=== PATIENT | male | born 2000 | race Caucasian/White ===

== ENCOUNTER 2023-04-05 13:21 | Outpatient (AMB) | payer MEDICARE, MEDICAID, SELFPAY ==
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
[2023-04-05 13:45] VITALS: BP 124/82; PULSE 74; O2SAT 97; BMI 28.9
== END 2023-04-05 14:35 | disposition home or self-care (01) ==
PROVIDERS: PCP Internal Medicine; Visit Provider Nurse Practitioner Family
DX: G47.33 Obstructive sleep apnea (adult) (pediatric) (principal); R41.840 Attention and concentration deficit; R53.83 Other fatigue; R41.3 Other amnesia
CPT/HCPCS: 99204

== ENCOUNTER → 2023-04-05 13:21 | Outpatient (BNVA) | payer MEDICARE, MEDICAID, SELFPAY | PROVIDERS: PCP Internal Medicine; Visit Provider Nurse Practitioner Family | DX: R41.840 Attention and concentration deficit (principal); R41.3 Other amnesia; R53.83 Other fatigue; G47.33 Obstructive sleep apnea (adult) (pediatric) | CPT/HCPCS: 99202 ==

== ENCOUNTER → 2023-05-20 14:55 | Outpatient (REF) | payer MEDICARE, MEDICAID, SELFPAY | LOC: HO.SL 14:55 | PROVIDERS: PCP Internal Medicine; Visit Provider Nurse Practitioner Family | DX: G47.33 Obstructive sleep apnea (adult) (pediatric) (principal); R06.83 Snoring; R40.0 Somnolence | CPT/HCPCS: 95806 ==

== ENCOUNTER → 2023-05-20 15:07 | Outpatient (BNV) | payer MEDICARE, MEDICAID, SELFPAY | PROVIDERS: PCP Internal Medicine; Visit Provider Psychiatry & Neurology Neurology | DX: R06.83 Snoring (principal) | CPT/HCPCS: 95806 ==

== ENCOUNTER → 2023-06-24 21:31 | Outpatient (REF) | payer MEDICARE, MEDICAID, SELFPAY | LOC: HO.SL 21:31 | PROVIDERS: PCP Internal Medicine; Visit Provider Nurse Practitioner Family | DX: G47.33 Obstructive sleep apnea (adult) (pediatric) (principal); R41.840 Attention and concentration deficit | CPT/HCPCS: 95810 ==

== ENCOUNTER → 2023-06-24 21:35 | Outpatient (BNV) | payer MEDICARE, MEDICAID, SELFPAY | PROVIDERS: PCP Internal Medicine; Visit Provider Psychiatry & Neurology Neurology | DX: R06.83 Snoring (principal); R40.0 Somnolence | CPT/HCPCS: 95810 ==

== ENCOUNTER 2023-07-14 12:56 | Outpatient (AMB) | payer MEDICARE, MEDICAID, SELFPAY ==
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
[2023-07-14 13:02] VITALS: BP 118/72; PULSE 53; O2SAT 97; BMI 29.3
== END 2023-07-14 14:01 | disposition home or self-care (01) ==
PROVIDERS: PCP Internal Medicine; Visit Provider Nurse Practitioner Family
DX: R41.840 Attention and concentration deficit (principal); R53.83 Other fatigue; R41.3 Other amnesia; R41.89 Other symptoms and signs involving cognitive functions and awareness; M25.50 Pain in unspecified joint; M62.89 Other specified disorders of muscle
CPT/HCPCS: 99214

== ENCOUNTER 2023-07-14 14:03 | Outpatient (REF) | payer MEDICARE, MEDICAID, SELFPAY ==
[2023-07-14 19:14] LABS: Rheumatoid Factor < 13.0 IU/mL (<15.0)
[2023-07-14 19:16] LABS: Alanine Aminotransferase 23 U/L (0-40); Albumin Level 4.6 g/dL (3.5-5.0); Alkaline Phosphatase 49 U/L (39-117); Anion Gap 14 (12-20); Aspartate Amino Transferase 23 U/L (5-37); Bilirubin Total 0.4 mg/dL (0.0-1.0); Blood Urea Nitrogen 14 mg/dL (9-16); Calcium 10.4 mg/dL (8.4-10.2); Carbon Dioxide 26 mmol/L (22-29); Chloride 106 mmol/L (96-108); Estimated Glomerular Filt Rate > 60; Glucose Random 81 mg/dL (60-115); Iron 137 mcg/dL (45-160); Magnesium 2.1 mg/dL (1.6-2.6); Percent Iron Saturation 42 % (15-50); Potassium 4.6 mmol/L (3.3-5.1); Sodium 141 mmol/L (135-145); Total Iron Binding Capacity 323 mcg/dL (228-428); Total Protein 7.5 g/dL (6.5-8.0); Unsaturated Iron Binding 186 ug/dL
[2023-07-14 19:21] LABS: Ferritin 125 ng/mL (20-250); TSH reflex Free T4 0.84 uIU/mL (0.32-4.0)
[2023-07-14 19:36] LABS: Folate 18.3 ng/mL (> or = 4.0); Vitamin B12 1508 pg/mL (200-900)
[2023-07-14 19:44] LABS: Erythrocyte Sedimentation Rate 3 MM/HR (0-15)
[2023-07-15 05:12] LABS: Estimated Average Glucose 88 mg/dL; Hemoglobin A1c % 4.7 % (<6.0)
[2023-07-15 17:08] LABS: CRP High Sensitivity 0.5 mg/L
[2023-07-17 22:24] LABS: Anti Nuclear Antibody Screen NEGATIVE (NEGATIVE)
[2023-07-18 17:10] LABS: Vitamin D 25-OH, D2 <4 ng/mL; Vitamin D 25-OH, D3 34 ng/mL; Vitamin D 25-OH, Total 34 ng/mL (30-100)
[2023-07-20 14:58] LABS: Methylmalonic Acid 86 nmol/L (87-318)
== END 2023-07-14 14:04 | disposition home or self-care (01) ==
LOC: HO.HKASLDS 14:03
PROVIDERS: Visit Provider Nurse Practitioner Family
DX: M25.50 Pain in unspecified joint (principal); R41.3 Other amnesia; R53.83 Other fatigue; F09 Unspecified mental disorder due to known physiological condition; M62.89 Other specified disorders of muscle; R41.840 Attention and concentration deficit; Z79.899 Other long term (current) drug therapy
CPT/HCPCS: 36415; 80053; 82306; 82550; 82607; 82728; 82746; 83036; 83540; 83735; 83921; 84443; 85652; 86038; 86141; 86431; 99212

== ENCOUNTER 2023-07-19 16:44 | Outpatient (REF) | payer MEDICARE, MEDICAID, SELFPAY ==
[2023-07-19 17:35] LABS: Basophils Absolute Auto 0.1 X10*3/uL (0.0-0.2); Basophils Percent Auto 0.8 % (0-2); Eosinophils Absolute Auto 0.1 X10*3/uL (0.0-0.4); Eosinophils Percent Auto 1.4 % (0-4); Hemoglobin 16.7 g/dl (14.0-18.0); Imm Gran Abs Auto 0.01 X10*3/uL (0.00-0.03); Imm Gran Pct Auto 0.2 % (0.0-0.4); Lymphocytes Absolute Auto 1.8 X10*3/uL (1.2-4.9); Lymphocytes Percent Auto 27.7 % (20-40); MANUAL DIFF FLAG NO; Mean Corpuscular HGB Conc 35.5 g/dl (31.0-36.0); Mean Corpuscular Hemoglobin 31.6 pg (27.0-33.0); Mean Corpuscular Volume 88.8 fL (80.0-98.0); Mean Platelet Volume 9.7 fL (9.4-12.4); Monocytes Absolute Auto 0.5 X10*3/uL (0.1-1.2); Monocytes Percent Auto 6.9 % (2-11); Neutrophils Absolute Auto 4.1 x10*3/uL (2.0-8.3); Platelet Count 237 X10*3/uL (160-400); Red Blood Count 5.29 X10*6/uL (4.60-5.80); Red Cell Distribution Width 12.4 % (11.0-16.0); White Blood Count 6.6 X10*3/uL (4.8-10.8)
[2023-07-20 21:24] LABS: Homocysteine 6.4 umol/L (<11.4)
== END 2023-07-19 16:45 | disposition home or self-care (01) ==
LOC: HO.LAB 16:44
PROVIDERS: PCP Internal Medicine; Visit Provider Nurse Practitioner Family
DX: M25.50 Pain in unspecified joint (principal); R41.3 Other amnesia; R53.83 Other fatigue; F09 Unspecified mental disorder due to known physiological condition; M62.89 Other specified disorders of muscle
CPT/HCPCS: 36415; 83090; 85025

== ENCOUNTER 2023-08-24 12:49 | Outpatient (REF) | payer MEDICARE, MEDICAID, SELFPAY ==
--- NOTE | 2023-08-24 12:54 | EEG_ITS ---
This is a 16 channel EEG with an EKG lead. The patient is reported awake during the tracing. Background EEG rhythm is 8 to 10 hertz, 5 to 25 microvolt posteriorly, lower amplitude fast anteriorly. Photic stimulation does not produce any significant abnormality. Hyperventilation similarly is unremarkable. No definite sharp waves or spikes are noted. Occasional right hemispheric brief slowing was noted. Cardiac lead did not reveal any significant abnormality. IMPRESSION: Minimally abnormal EEG, but not diagnostic of seizure disorder. If that is strongly suspected, I recommend ambulatory 24 hour or 48 hour EEG. MD EDITH Ervin/VERONICA / [phone]
== END 2023-08-24 12:50 | disposition home or self-care (01) ==
LOC: HO.NEURO 12:49
PROVIDERS: PCP Internal Medicine; Visit Provider Nurse Practitioner Family
DX: R41.3 Other amnesia (principal); R53.83 Other fatigue; R41.840 Attention and concentration deficit
CPT/HCPCS: 95816

== ENCOUNTER 2024-03-15 12:25 | Outpatient (AMB) | payer MEDICARE, MEDICAID, SELFPAY ==
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
[2024-03-15 12:33] VITALS: BMI 29.3
--- OUTSIDE RECORDS SUMMARY | 2024-03-15 13:47 | XMS_ITS | Encounter Summary ---
Author Organization [facility] Address [address] [place] [address] Phone Care Team Providers Care Chair Pad Maker Name Role Phone Provider, King CHAND Primary Care Provider [phone] Encounter Details Date Type Department Care Team (Late st Contact Info) Description 06/27/2017 Conversion [facility]counter [facility] [address] [address] Deandre Palencia MD Social History Tobacco Use Types Packs/Day Years Used Date Smoking Tobacco: Never Assessed Sex and Gender Information Value Date Recorded Sex Assigned at Male 08/08/2019 11:43 AM EDT Legal Sex Male 6:26 PM EDT Gender Identity Male 08/08/2019 11:43 AM EDT Sexual Orientation Straight 08/08/2019 11 :43 AM EDT documented as of this encounter Plan of Treatment Not on file documented as of this encounter Visit Diagnoses Not on filedocumented in this encounter Care Teams Chair Pad Maker Relationship Specialty Start Date End Date Provider, MD King [address] [place] [id number] PCP - General Pediatrics 09/02/21 12/08/23 endo 05/04/18 documented as of this encounter
--- OUTSIDE RECORDS SUMMARY | 2024-03-15 13:48 | XMS_ITS | Clinical Summary ---
Author Organization [facility] Address [address] [place], [place] [id number] Phone Care Team Providers Care Manager Of Change Name Role Phone Unavailable Primary Care Provider Unavailabl e Allergies No known active allergies Medications ARIPiprazole 5 MG tablet 8 Active escitalopram 20 MG tablet 8 Active metFORMIN 500 MG tablet 8 Active clindamycin 1 % gel 8 Active BENZOYL PEROXIDE 10 % external wash 8 Active escitalopram 5 MG tablet 9 Active benzoyl peroxide 10 % gel Apply 10 application topically every other day. 0 0 Active Active Problems Problem Noted Date Diagnosed Date Hypotestosteronemia 05/04/2018 Obstructive sleep apnea of child 04/27/2018 Generalized anxiety disorder 02/03/2016 Disruptive behavior disorder 02/03/2016 Depression with anxiety 11/17/2014 Obsessive-compulsive disorder 11/17/2014 Immunizations Name Administration Dates Next Due COVID-19 Pfizer, monovalent, 12+ years 1 DTaP 04/14/2006, 3,2001,05/24,2001 DTaP 5 04/14/2006, 3,2001,05/24,2001 HPV Vaccine 9 Valent 11/04/2018,07/05/2018,05/04 Hep A, ped/adol 05/04/2018,03/20/2016 Hep B, ped/adol 2001,2001,2001 Hib (PRP-T) 05/10/2002, 2,2001,03/22 IPV 04/14/2006, 2,2001,03/22 MMR 03/03/2005,01/17/2002 Meningococcal Conj (Menactra) MCV4P 04/23/2017,1 03/29/2011 Pneumococcal Conjugate 09/08/2002,2001,2001,03/22 Tdap 01/27/2012 Varicella 04/14/2006,01/17/2002 Family History Medical History Relation Name Comments Autism spectrum disorder Brother coy Anxiety disorder Father Diabetes Maternal Grandmother Hyperlipidemia Mother Migraines Mother Relation Name Status Comments Brother coy Alive Brother: Alive and well Father Alive anxiety disorde r/Father: Alive and well Maternal Grandfather Maternal Grandmother Alive DM type 2 Mother Alive Mother: Elevate d cholesterol, Migraines Other Siblings: one t win brother adhd aspergers/Family history of Asthma, Family history of Obesity, Family history of Diabetes mellitus, Family history of Developmental dislocation of hip Paternal Grandfather Paternal Grandmother Alive stomach issues Social History Tobacco Use Types Packs/Day Years Used Date Smoking Tobacco: Never Smokeless Tobacco: Never Hunger/Food Answer Date Recorded In the last 12 months, did y ou or your family ever eat less than you felt you should because there wasn't enough money for food? No 12/17/2020 Stable Housing Answer Date Recorded Are you worried that in the next 2 months you may not have stable housing? No 12/17/2020 Transportation Concerns Answer Date Rec orded In the last 12 months, have you or your family ever had to go without healthcare because you didn't have a way to get there? No 12/17/2020 Hazards in Home Answer Date Recorded Think about the place you li ve. Do you have problems with any of the following? Pests (mice or roaches), mold, no/not working smoke detectors, water leaks, no window guards. No 2020 Financing Utilities Answer Date Recorde d In the last 12 months, has t he electric, gas, oil, or water company threatened to shut off your services in your home? No 12/17/2020 Safety at Home Answer Date Recorded Are you or your family worried about feeling saf e in your home? No 12/17/2020 Outside Support Answer Date Recorded Do you feel that you need mo re support from other people or programs to help you care for yourself or your family? No 12/17/2020 Understanding Health Concerns Answer Da te Recorded Do you need help understandi ng your or your child's healthcare needs (diagnosis, medications, plan, etc.)? No 12/17/2020 Financing Health Concerns Answer Date R ecorded In the last 12 months, was t here a time when your child needed to see a doctor or get medications or supplies but could not because of cost? No 12/17/2020 Missing School or Work Answer Date Santos rded Did you or your child miss s chool or work because of a health problem that could have been avoided? No 12/17/2020 Sex and Gender Information Value Date Recorded Sex Assigned at Male 08/08/2019 11:43 AM EDT Legal Sex Male 6:26 PM EDT Gender Identity Male 08/08/2019 11:43 AM EDT Sexual Orientation Straight 08/08/2019 11 :43 AM EDT Last Filed Vital Signs Vital Sign Reading Time Taken Comments Blood Pressure 122/74 12/17/2020 12:54 PM EST Pulse 92 06/06/2015 12:00 AM EDT Temperature 36.9 ??C (98.4 ??F) 08/04/2018 2:18 PM ED T Respiratory Rate - - Oxygen Saturation 97% 06/06/2015 12:00 AM EDT Inhaled Oxygen Concentration - - Weight 132 kg (291 lb) 12/17/2020 12:54 PM EST Height 184.8 cm (6' 0.75 ) 12/17/2020 12:[address] Body Mass Index 38.66 12/17/2020 12:54 PM EST Plan of Treatment Health Maintenance Due Date Last Done Comments Men B Vaccine (1 of 2 - Standard) 2017 LDL-C/Cholesterol 05/04/2018 Glucose/HbA1C 12/14/2018 12/14/2017, 11/0 07/2017, 06/07/2015 DTaP,Tdap,and Td Vaccines (7 - Td or Tdap) 01/26/2022 01/27/2012, 04/14/2006, 04/14/2006, Additional history exists Influenza Vaccines (#1) 2023 COVID-19 Vaccine (2 - 2023-2 5 season) 2023 12/17/2020 Hepatitis B Vaccines Completed 2001, 2001, 2001 HIB Vaccines Completed 05/10/2002, 08/08, 2001, Additional history exists Pneumococcal Vaccine Completed 09/08/2002, 2001, 2001, Additional history exists MMR Vaccines Completed 03/03/2005, 01/17/2002 IPV Vaccines Completed 04/14/2006, 10/09, 2001, Additional history exists Varicella Vaccines Completed 04/14/2006, 01/17/2002 Meningococcal Vaccine Completed 04/23/2017, 012 Hepatitis A Vaccines Completed 05/04/2018, 03/20/19 17 HPV Vaccines Completed 11/04/2018, 06/09, 05/04/2018 Procedures * Due to [place] [employer] law, this organization might not be sharing sensitive test results. Procedure Name Priority Date/Time Associated Diagnosis Comments COMPREHENSIVE METABOLIC PANEL Routine 12/14/2017 11:19 AM EST Chronic fatigue from Last 3 Months or Most Recently Relevant to Health Maintenance Results * Due to [place] [employer] law, this organization might not be sharing sensitive test results. * (ABNORMAL) Comprehensive metabolic panel (12/14/2017 11:19 AM EST) Glucose 85 (70-99) MG/DL [facility] Urea Nitrogen 13 (5-18) MG/DL [facility] Creatinine 0.8 (0.7-1.2) MG/DL [facility] Sodium 140 (133-145) MMOL/L [facility] Potassium 5.0 (3.6-5.2) MMOL/L [facility] Chloride 103 (98-107) MMOL/L [facility] HCO3, Arterial 28 (22-29) MMOL/L [facility] Anion Gap 9 (4-17) [facility] Albumin 4.8(H) (3.2-4.5) GM/DL [facility] Calcium 10.3 (8.6-10.5 ) MG/DL [facility] Comment: BORDERLINE ELEVATED CALCIUM LEVELS SHOULD BE REPEATED ON A SEPARATE DAY CLINICALLY INDICATED. NOTE: ADULT REFERENCE RANGE MAY NOT APPLY TO PEDIATRIC PATIENTS. INTERPRET RESULTS WITH CAUTION. Bilirubin, Total 0.5 (0-1.2) MG/DL [facility] Total Protein 7.6 (6.2-8.2) GM/DL [facility] A/G Ratio 1.7 [facility] AST (SGOT) 29 (0-38) U/L [facility] Alkaline Phosphatase 111 (0-390) U/L [facility] ALT (SGPT) 24 (0-41) U/L [facility] eGFR Non- Not reported if <18 yrs ML/MIN/1. 73 M2 [facility] eGFR Not reported if <18 yrs ML/MIN/1. 73 M2 [facility] Comment: Testing performed or reported by [facility], a Service of [facility], [address] [place] [address] Yani Woodson MD, Benefits Manager Blood 12/14/2017 11:1 9 AM EST 12/14/2017 11:25 AM EST us Deandre Palencia MD LAB BLOOD ORDERABLES [facility] Organization Address City/State/ZIP Co de Phone Number [facility] from Last 3 Months or Most Recently Relevant to Health Maintenance Insurance NON PCC [facility] NON PCC Care Teams Manager Of Change Relationship Specialty Start Date End Date endo 05/04/18
--- OUTSIDE RECORDS SUMMARY | 2024-03-15 13:48 | XMS_ITS | Encounter Summary ---
Author Organization [facility] Address [address] [place] [address] Phone Care Team Providers Care Old Testament Professor Name Role Phone Provider, King CHAND Primary Care Provider [phone] Encounter Details Date Type Department Care Team (Late st Contact Info) Description 09/24/2016 Conversion Encounter [place] [facility] - [address] [address] Social History Tobacco Use Types Packs/Day Years [...] on filedocumented in this encounter Care Teams Old Testament Professor Relationship Specialty Start Date End Date Provider, MD King [address] [place] [id number] PCP - General Pediatrics 09/02/21 12/08/23 endo 05/04/18 documented as of this encounter
== END 2024-03-15 13:09 | disposition home or self-care (01) ==
PROVIDERS: PCP Internal Medicine; Visit Provider Psychiatry & Neurology Neurology
DX: R41.840 Attention and concentration deficit (principal); R41.3 Other amnesia; R41.89 Other symptoms and signs involving cognitive functions and awareness
CPT/HCPCS: 99214; G2211

== ENCOUNTER 2024-03-15 12:25 | Outpatient (REF) | payer MEDICARE, MEDICAID, SELFPAY ==
--- OUTSIDE RECORDS SUMMARY | 2024-03-15 14:33 | XMS_ITS | Clinical Summary ---
Author Organization [facility] Address [address] [place], [place] [id number] Phone Care Team Providers Care Research Chemical Engineer Name Role Phone Unavailable Primary Care Provider [...] 11/04/2018, 06/09, 05/04/2018 Procedures * Due to [place] [employer] law, this organization might not be sharing sensitive test results. Procedure Name Priority Date/Time Associated Diagnosis Comments COMPREHENSIVE METABOLIC PANEL Routine 12/14/2017 11:19 AM EST Chronic fatigue from Last 3 Months or Most Recently Relevant to Health Maintenance Results * Due to [place] [employer] law, this organization might not be sharing [...] WITH CAUTION. Bilirubin, Total 0.5 (0-1.2) MG/DL [facility] Total Protein 7.6 (6.2-8.2) GM/DL [facility] A/G Ratio 1.7 [facility] AST (SGOT) 29 (0-38) U/L [facility] Alkaline Phosphatase 111 (0-390) U/L [facility] ALT (SGPT) 24 (0-41) U/L [facility] eGFR Non- Not reported if <18 yrs ML/MIN/1. 73 M2 [facility] eGFR Not reported if <18 yrs ML/MIN/1. 73 M2 [facility] Comment: Testing performed or reported by [facility], a Service of [facility], [address] [place] [address] Yani Woodson MD, Cover Creaser Blood 12/14/2017 11:1 9 AM EST 12/14/2017 11:25 AM EST us Deandre Palencia MD LAB BLOOD ORDERABLES Final Re [facility] Organization Address City/State/ZIP Co de Phone Number [facility] from Last 3 Months or Most Recently Relevant to Health Maintenance Insurance NON PCC [facility] NON PCC Care Teams Research Chemical Engineer Relationship Specialty Start Date End Date endo 05/04/18
--- OUTSIDE RECORDS SUMMARY | 2024-03-15 14:33 | XMS_ITS | Encounter Summary ---
Author Organization [facility] Address [address] [place] [address] Phone Care Team Providers Care Retail Agent Name Role Phone Provider, King CHAND Primary Care Provider [phone] Encounter Details Date Type Department Care Team (Late st Contact Info) Description 09/24/2016 Conversion Encounter [place] [facility] - [address] [address] Social History Tobacco Use Types Packs/Day Years [...] on filedocumented in this encounter Care Teams Retail Agent Relationship Specialty Start Date End Date Provider, MD King [address] [place] [id number] PCP - General Pediatrics 09/02/21 12/08/23 endo 05/04/18 documented as of this encounter
--- OUTSIDE RECORDS SUMMARY | 2024-03-15 14:33 | XMS_ITS | Encounter Summary ---
Author Organization [facility] Address [address] [place] [address] Phone Care Team Providers Care Director Phone Name Role Phone Provider, King CHAND Primary Care Provider [phone] Encounter Details Date Type Department Care Team (Late st Contact Info) Description 06/27/2017 [facility]counter [facility] [address] [address] Deandre Palencia MD Social History Tobacco Use [...] on filedocumented in this encounter Care Teams Director Phone Relationship Specialty Start Date End Date Provider, MD King [address] [place] [id number] PCP - General Pediatrics 09/02/21 12/08/23 endo 05/04/18 documented as of this encounter
[2024-03-20 19:13] LABS: CK-BB None Detected (None Detected); CK-MB 0 % (<5); CK-MM 100 % (95-100); Creatine Kinase,Total,Serum 155 U/L (26-366)
== END 2024-03-15 12:26 | disposition home or self-care (01) ==
LOC: HO.HKASLDS 12:25
PROVIDERS: PCP Internal Medicine; Visit Provider Psychiatry & Neurology Neurology
DX: F09 Unspecified mental disorder due to known physiological condition (principal); M62.89 Other specified disorders of muscle; R41.840 Attention and concentration deficit; R41.3 Other amnesia
CPT/HCPCS: 36415; 82552; 99212

== ENCOUNTER 2024-08-02 12:49 | Outpatient (RCR) | payer MEDICARE, MEDICAID, SELFPAY ==
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
== END 2024-08-09 13:55 | disposition home or self-care (01) ==
LOC: HO.SH 12:49
PROVIDERS: PCP Internal Medicine; Visit Provider Psychiatry & Neurology Neurology
DX: F99 Mental disorder, not otherwise specified (principal)
CPT/HCPCS: 96125

== ENCOUNTER 2024-10-05 11:08 | Outpatient (AMB) | payer MEDICARE, MEDICAID, SELFPAY ==
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
[2024-10-05 11:10] VITALS: BP 106/62; PULSE 73; O2SAT 95; BMI 33.1
--- OUTSIDE RECORDS SUMMARY | 2024-10-05 12:30 | XMS_ITS | Clinical Summary ---
Author Organization [facility] Address [address] [place], [place] [address] Phone Care Team Providers Care Numerical Control Machine Tool Operator Name Role Phone Unavailable Primary Care Provider [...] with anxiety 11/17/2014 Obsessive-compulsive disorder 11/17/2014 Immunizations Immunization Administration Dates Next Due COVID-19 Pfizer, monovalent, [...] 92 06/06/2015 12:00 AM EDT Temperature 36.9 C (98.4 F) 08/04/2018 2:18 PM EDT Respiratory Rate - - Oxygen Saturation 97% [...] 01/26/2022 01/27/2012, 04/14/2006, 04/14/2006, Additional history exists COVID-19 Vaccine (2 - 2023-2 5 season) 2023 12/17/2020 Influenza Vaccines (#1) 2024 Hepatitis B Vaccines Completed 2001, 2001, 2001 [...] 11/04/2018, 06/09, 05/04/2018 Procedures * Due to [place] [employer] law, this organization might not be sharing sensitive test results. Procedure Name Priority Date/Time Associated Diagnosis Comments COMPREHENSIVE METABOLIC PANEL Routine 12/14/2017 11:19 AM EST Chronic fatigue from Last 3 Months or Most Recently Relevant to Health Maintenance Results * Due to [place] [employer] law, this organization might not be sharing [...] WITH CAUTION. Bilirubin, Total 0.5 (0-1.2) MG/DL [facility] Total Protein 7.6 (6.2-8.2) GM/DL [facility] A/G Ratio 1.7 [facility] AST (SGOT) 29 (0-38) U/L [facility] Alkaline Phosphatase 111 (0-390) U/L [facility] ALT (SGPT) 24 (0-41) U/L [facility] eGFR Non- Not reported if <18 yrs ML/MIN/1. 73 M2 [facility] eGFR Not reported if <18 yrs ML/MIN/1. 73 M2 [facility] Comment: Testing performed or reported by [facility], a Service of [facility], [address] [place] [address] Yani Woodson MD, Bomb Technician Blood 12/14/2017 11:1 9 AM EST 12/14/2017 11:25 AM EST us Deandre Palencia MD LAB BLOOD ORDERABLES Final Re sult [facility] Organization Address City/State/ZIP Co de Phone Number [facility] from Last 3 Months or Most Recently Relevant to Health Maintenance Insurance NON PCC [facility] NON PCC Care Teams Numerical Control Machine Tool Operator Relationship Specialty Start Date End Date endo 05/04/18
--- OUTSIDE RECORDS SUMMARY | 2024-10-05 12:30 | XMS_ITS | Encounter Summary ---
Author Organization [facility] Address [address] [place] [address] Phone Care Team Providers Care Airport Representative Name Role Phone Provider, King CHAND Primary Care Provider [phone] Encounter Details Date Type Department Care Team (Late st Contact Info) Description 06/27/2017 Conversion [facility]counter [facility] [address] [address] Deandre Palencia MD Social History Tobacco Use [...] on filedocumented in this encounter Care Teams Airport Representative Relationship Specialty Start Date End Date Provider, MD King [address] [place] [address] PCP - General Pediatrics 09/02/21 12/08/23 endo 05/04/18 documented as of this encounter
--- OUTSIDE RECORDS SUMMARY | 2024-10-05 12:30 | XMS_ITS | Encounter Summary ---
Author Organization [facility] Address [address] [place] [address] Phone Care Team Providers Care Engineering Design Supervisor Name Role Phone Provider, King CHAND Primary Care Provider [phone] Encounter Details Date Type Department Care Team (Late st Contact Info) Description 09/24/2016 Conversion Encounter [facility] - [address] [address] Social History Tobacco Use Types Packs/Day Years [...] on filedocumented in this encounter Care Teams Engineering Design Supervisor Relationship Specialty Start Date End Date Provider, MD King [address] [place] [address] PCP - General Pediatrics 09/02/21 12/08/23 endo 05/04/18 documented as of this encounter
== END 2024-10-05 12:16 | disposition home or self-care (01) ==
LOC: HO.HSMS 11:09
PROVIDERS: PCP Internal Medicine; Visit Provider Physician Assistant Medical
DX: G47.19 Other hypersomnia (principal); R41.89 Other symptoms and signs involving cognitive functions and awareness; R41.840 Attention and concentration deficit; G47.10 Hypersomnia, unspecified
CPT/HCPCS: 99214

== ENCOUNTER → 2024-10-05 11:08 | Outpatient (BNVA) | payer MEDICARE, MEDICAID, SELFPAY | PROVIDERS: PCP Internal Medicine; Visit Provider Physician Assistant Medical | DX: G47.19 Other hypersomnia (principal); F09 Unspecified mental disorder due to known physiological condition; R41.840 Attention and concentration deficit; G47.10 Hypersomnia, unspecified | CPT/HCPCS: 99212 ==

== ENCOUNTER 2024-11-16 13:58 | Outpatient (REF) | payer MEDICARE, MEDICAID, SELFPAY ==
[2024-11-16 14:51] LABS: Hematocrit 46.2 % (42.0-52.0); Hemoglobin 16.7 g/dl (14.0-18.0); Mean Corpuscular HGB Conc 36.1 g/dl (31.0-36.0); Mean Corpuscular Hemoglobin 31.0 pg (27.0-33.0); Mean Corpuscular Volume 85.9 fL (80.0-98.0); NRBC Abs Auto 0.000 X10*3/uL (0.0-0.012); NRBC Pct Auto 0.0 /100WBC (0.0-0.2); Platelet Count 260 X10*3/uL (160-400); Red Blood Count 5.38 X10*6/uL (4.60-5.80); White Blood Count 6.7 X10*3/uL (4.8-10.8)
[2024-11-16 16:44] LABS: Cannabinoid Screen Urine Not Detected (Not Detect)
[2024-11-16 17:00] LABS: Alanine Aminotransferase 39 U/L (0-40); Albumin Level 5.1 g/dL (3.5-5.0); Alkaline Phosphatase 51 U/L (39-117); Anion Gap 14 (12-20); Aspartate Amino Transferase 49 U/L (5-37); Blood Urea Nitrogen 14 mg/dL (9-16); Calcium 10.2 mg/dL (8.4-10.2); Carbon Dioxide 25 mmol/L (22-29); Chloride 106 mmol/L (96-108); Estimated Glomerular Filt Rate > 60; Potassium 4.2 mmol/L (3.3-5.1); Sodium 141 mmol/L (135-145); Total Protein 7.8 g/dL (6.5-8.0)
[2024-11-16 17:04] LABS: Ferritin 204 ng/mL (20-250)
[2024-11-16 17:20] LABS: Folate 14.2 ng/mL (> or = 4.0); Vitamin B12 1300 pg/mL (200-900)
[2024-11-17 06:28] LABS: Lyme Abs Screen <0.90 index
== END 2024-11-16 13:59 | disposition home or self-care (01) ==
LOC: HO.LAB 13:58
PROVIDERS: Visit Provider Physician Assistant Medical
DX: Z51.81 Encounter for therapeutic drug level monitoring (principal); Z13.1 Encounter for screening for diabetes mellitus; G47.19 Other hypersomnia; M62.89 Other specified disorders of muscle; R53.83 Other fatigue; R41.3 Other amnesia
CPT/HCPCS: 80053; 80307; 82306; 82607; 82728; 82746; 83090; 83921; 84207; 84425; 84443; 85027; 86617; 86618

== ENCOUNTER 2025-01-02 11:37 | Outpatient (AMB) | payer MEDICARE, MEDICAID, SELFPAY ==
[2025-01-02 11:43] VITALS: BP 122/86; PULSE 68; O2SAT 96; BMI 34.9
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
--- OUTSIDE RECORDS SUMMARY | 2025-01-02 15:26 | XMS_ITS | Clinical Summary ---
Author Organization [facility] Address [address] [place] [address] Phone Care Team Providers Care Site Supervising Technical Operator Name Role Phone Delmer Jolley MD Primary Care Provider [phone] Family History Medical History Relation Comments Arthritis Father Cancer Maternal Grandfather Arthritis Maternal Grandmother Dementia Maternal Grandmother Diabetes Maternal Grandmother Heart disease Maternal Grandmother Hypertension Maternal Grandmother Kidney disease Maternal Grandmother Stroke Maternal Grandmother Arthritis Mother Cancer Mother Diabetes Mother Headaches Mother Hypertension Mother Thyroid disease Mother Dementia Paternal Grandfather Arthritis Paternal Grandmother Relation Status Comments Father Alive Maternal Grandfather Maternal Grandmother Mother Alive Paternal Grandfather Paternal Grandmother Social History Tobacco Use Types Packs/Day Years Used Date Smoking Tobacco: Never Assessed Education Answer Date Recorded Are you interested in more education? Not on roes e 02/09/2023 Are you concerned about learning? Not on file 02/09/2023 No 02/09/2023 No 02/09/2023 Digital Access Answer Date Recorded No 02/09/2023 No 02/09/2023 Reliable internet access at home? Not on file 02/09/2023 Device with a working camera? Not on file Sex and Gender Information Value Date Recorded Sex Assigned at Not on file Legal Sex Male 12:29 PM EST Gender Identity Not on file Sexual Orientation Not on file Last Filed Vital Signs Vital Sign Reading Time Taken Comments Blood Pressure 129/71 06/16/2023 12:58 PM EDT Pulse 71 06/16/2023 12:58 PM EDT Temperature 36.7 C (98 F) 06/16/2023 12:58 PM EDT Respiratory Rate - - Oxygen Saturation 97% 06/16/2023 12:58 PM EDT Inhaled Oxygen Concentration - - Weight 111.1 kg (245 lb) 03/30/2024 2:43 PM EST Height 188 cm (6' 2 ) 03/30/2024 2:43 PM EST Body Mass Index 31.46 03/30/2024 2:43 PM EST Plan of Treatment Health Maintenance Due Date Last Done Comments DEPRESSION SCREENING 2013 SMOKING Hx and SMOKELESS TOB ACCO SCREENING 2014 HPV VACCINES (1 - Male 3-dos e series) 01/14/2016 MENINGOCOCCAL VACCINES (B) ( 1 of 2 - Standard) 2017 HEPATITIS C SCREENING 2019 HIV ONE-TIME SCREENING (18-6 5 YEARS) 2019 Adult Td,Tdap Booster 01/26/2022 01/27/2012 INFLUENZA VACCINE (#1) 2024 COVID-19 VACCINE ( - 2024-2 6 season) 2024 HEPATITIS A VACCINES Aged Out No long er eligible based on patient's age to complete this topic HIB VACCINES Aged Out No longer eligi ble based on patient's age to complete this topic MENINGOCOCCAL VACCINES (ACWY) Aged Out No longer eligible based on patient's age to complete this topic PNEUMOCOCCAL VACCINES (0-49 years) Aged Out No longer eligible based on patient's age to complete this topic Medical Devices Not on file Insurance MEDICARE PART A [place] B [place] [facility] [place] [facility] [place] B [facility] Care Teams Site Supervising Technical Operator Relationship Specialty Start Date End Date Delmer Jolley MD [address] [place] [address] PCP - General Internal Medicine 01/08/23 Additional Source Comments The information contained in this document represents components of the legal health record. It is not the complete legal health record.[facility]
--- OUTSIDE RECORDS SUMMARY | 2025-01-02 15:26 | XMS_ITS | Encounter Summary ---
Author Organization [facility] Address [address] [place] [address] Phone Care Team Providers Care Vp Biology Name Role Phone Provider, King CHAND Primary Care Provider [phone] Encounter Details Date Type Department Care Team (Late st Contact Info) Description 09/24/2016 Conversion Encounter [facility] - [address] [address] Social History Tobacco Use Types Packs/Day Years [...] on filedocumented in this encounter Care Teams Vp Biology Relationship Specialty Start Date End Date Provider, MD King [address] [place] [address] PCP - General Pediatrics 09/02/21 12/08/23 endo 05/04/18 documented as of this encounter
--- OUTSIDE RECORDS SUMMARY | 2025-01-02 15:26 | XMS_ITS | Encounter Summary ---
Author Organization [facility] Address [address] [facility] [address] [place] [address] Phone Care Team Providers Care Substation Engineer Name Role Phone Delmer Jolley MD Primary Care Provider [phone] Encounter Details Date Type Department Care Team ([facility] st Contact Info) Description 06/28/2023 Telephone [facility] Department of Neurology [address] [place] [address], [address]th Floor, [address] [place] [address] Marcio Tamez MD, PhD [address] [place] [address] [email or web address] Social History Tobacco Use Types Packs/Day Years Used Date Smoking Tobacco: Never Assessed Education Answer Date Recorded Are you interested in more education? Not on rose e 02/09/2023 Are you concerned about learning? [...] on file Sexual Orientation Not on file documented as of this encounter Plan of Treatment Not on file documented as of this encounter Visit Diagnoses Not on filedocumented in this encounter Care Teams Substation Engineer Relationship Specialty Start Date End Date Delmer Jolley MD [address] [place] [address] PCP - General Internal Medicine 01/08/23 documented as of this encounter Additional Source Comments The information contained in this document represents components of the legal health record. It is not the complete legal health record.[facility]
--- OUTSIDE RECORDS SUMMARY | 2025-01-02 15:26 | XMS_ITS | Clinical Summary ---
Author Organization [facility] Address [address] [place], [place] [phone] Phone Care Team Providers Care Laundry Operator Name Role Phone Unavailable Primary Care [...] Standard) 2017 LDL-C/Cholesterol 05/04/2018 Glucose/HbA1C 12/14/2018 12/14/2017, 110 07/2017, 06/07/2015 DTaP,Tdap,and Td Vaccines (7 - Td or Tdap) 01/26/2022 01/27/2012, 04/14/2006, 04/14/2006, Additional history exists Influenza Vaccines (#1) 2024 COVID-19 Vaccine (2 - 2024-2 6 season) 2024 12/17/2020 Hepatitis B Vaccines Completed 2001, 2001, [...] 11/04/2018, 06/09, 05/04/2018 Procedures * Due to [place] [employer] law, this organization might not be sharing sensitive test results. Procedure Name Priority Date/Time Associated Diagnosis Comments COMPREHENSIVE METABOLIC PANEL Routine 12/14/2017 11:19 AM EST Chronic fatigue from Last 3 Months or Most Recently Relevant to Health Maintenance Results * Due to [place] [employer] law, this organization might not be sharing [...] MG/DL [facility] Total Protein 7.6 (6.2-8.2) GM/DL [facility] A/G Ratio 1.7 [facility] AST (SGOT) 29 (0-38) U/L [facility] Alkaline Phosphatase 111 (0-390) U/L [facility] ALT (SGPT) 24 (0-41) U/L [facility] eGFR Non- Not reported if <18 yrs ML/MIN/1. 73 M2 [facility] eGFR Not reported if <18 yrs ML/MIN/1. 73 M2 [facility] Comment: Testing performed or reported by [facility], a Service of [facility], [address] [place] [address] Yani Woodson MD, Hide Mill Worker Blood 12/14/2017 11:1 9 AM EST 12/14/2017 11:25 AM EST us Deandre Palencia MD LAB BLOOD ORDERABLES Final Re sult [facility] Organization Address City/State/ZIP Co de Phone Number [facility] from Last 3 Months or Most Recently Relevant to Health Maintenance Insurance NON PCC [facility] NON PCC Care Teams Laundry Operator Relationship Specialty Start Date End Date endo 05/04/18
--- OUTSIDE RECORDS SUMMARY | 2025-01-02 15:26 | XMS_ITS | Encounter Summary ---
Author Organization [facility] Address [address] [place] [address] Phone Care Team Providers Care Tube Heater Name Role Phone Provider, King CHAND Primary Care Provider [phone] Encounter Details Date Type Department Care Team (Late st Contact Info) Description 06/27/2017 [facility]counter [facility] [address] [address] Deandre Palencia MD Social History Tobacco Use [...] on filedocumented in this encounter Care Teams Tube Heater Relationship Specialty Start Date End Date Provider, MD King [address] [place] [id number] PCP - General Pediatrics 09/02/21 12/08/23 endo 05/04/18 documented as of this encounter
== END 2025-01-02 12:50 | disposition home or self-care (01) ==
LOC: HO.HSMS 11:37
PROVIDERS: PCP Internal Medicine; Visit Provider Physician Assistant Medical
DX: G47.19 Other hypersomnia (principal); R41.89 Other symptoms and signs involving cognitive functions and awareness; R41.840 Attention and concentration deficit; G47.10 Hypersomnia, unspecified; R56.9 Unspecified convulsions; H53.143 Visual discomfort, bilateral
CPT/HCPCS: 99214

== ENCOUNTER → 2025-01-02 11:37 | Outpatient (BNVA) | payer MEDICARE, MEDICAID, SELFPAY | PROVIDERS: PCP Internal Medicine; Visit Provider Physician Assistant Medical | DX: G47.19 Other hypersomnia (principal); F09 Unspecified mental disorder due to known physiological condition; R41.840 Attention and concentration deficit; G47.10 Hypersomnia, unspecified; R56.9 Unspecified convulsions; H53.143 Visual discomfort, bilateral; F41.8 Other specified anxiety disorders | CPT/HCPCS: 99212 ==

== ENCOUNTER → 2025-01-25 20:30 | Outpatient (REF) | payer MEDICARE, MEDICAID, SELFPAY ==
--- OUTSIDE RECORDS SUMMARY | 2025-01-25 22:38 | XMS_ITS | Clinical Summary ---
Author Organization [facility] Address [address] [place] [address] Phone Care Team Providers Care Ship Keeper Name Role Phone Delmer Jolley MD Primary Care Provider [phone] Family History Medical History Relation Comments Arthritis [...] (1 - Male 3-dos e series) 01/14/2016 HEPATITIS C SCREENING 2019 HIV ONE-TIME SCREENING [...] age to complete this topic MENINGOCOCCAL VACCINES (B) Aged Out N o longer eligible based on patient's age to complete this topic PNEUMOCOCCAL VACCINES (0-49 years) Aged Out No longer eligible based on patient's age to complete this topic Medical Devices Not on file Insurance MEDICARE PART A & B [place] A & [facility] [place] MED[place] A & [place] & [place] MEDICARE PART A & B HEALTH MEDICARE PART A & B [facility] Care Teams Ship Keeper Relationship Specialty Start Date End Date Delmer Jolley MD [address] [place] [id number] PCP - General Internal Medicine 01/08/23 Additional Source Comments The information contained in this document represents components of the legal health record. It is not the complete legal health record.[facility]
--- OUTSIDE RECORDS SUMMARY | 2025-01-25 22:38 | XMS_ITS | Clinical Summary ---
Author Organization [facility] Address [address] [place], [place] [address] Phone Care Team Providers Care Perpetual Inventory Clerk Name Role Phone Unavailable Primary Care Provider [...] Health Maintenance Due Date Last Done Comments LDL-C/Cholesterol 05/04/2018 Glucose/HbA1C 12/14/2018 12/14/2017, 11/0 07/2017, 06/07/2015 DTaP,Tdap,and Td Vaccines (7 - Td or Tdap) 01/26/2022 01/27/2012, 04/14/2006, 04/14/2006, Additional history exists Influenza Vaccines (#1) 2024 COVID-19 Vaccine (2 - season) 2024 12/17/2020 Hepatitis B Vaccines Completed [...] 17 HPV Vaccines Completed 11/04/2018, 06/09, 05/04/2018 Men B Vaccine Aged Out No longer elig ible based on patient's age to complete this topic Procedures * Due to [place] [employer] law, this organization might not be sharing sensitive test results. Procedure Name Priority Date/Time Associated Diagnosis Comments COMPREHENSIVE METABOLIC PANEL Routine 12/14/2017 11:19 AM EST Chronic fatigue from Last 3 Months or Most Recently Relevant to Health Maintenance Results * Due to [place] [employer] law, this organization might not be sharing [...] WITH CAUTION. Bilirubin, Total 0.5 (0-1.2) MG/DL [facility] Total Protein 7.6 (6.2-8.2) GM/DL [facility] A/G Ratio 1.7 [facility] AST (SGOT) 29 (0-38) U/L [facility] Alkaline Phosphatase 111 (0-390) U/L [facility] ALT (SGPT) 24 (0-41) U/L [facility] eGFR Non- Not reported if <18 yrs ML/MIN/1. 73 M2 [facility] eGFR Not reported if <18 yrs ML/MIN/1. 73 M2 [facility] Comment: Testing performed or reported by [facility], a Service of [facility], [address] [place] [address] Yani Woodson MD, Patient Carrier Blood 12/14/2017 11:1 9 AM EST 12/14/2017 11:25 AM EST us Deandre Palencia MD LAB BLOOD ORDERABLES Final Re [facility] Organization Address City/State/ZIP Co de Phone Number [facility] from Last 3 Months or Most Recently Relevant to Health Maintenance Insurance NON PCC [facility] NON PCC Care Teams Perpetual Inventory Clerk Relationship Specialty Start Date End Date endo 05/04/18
--- OUTSIDE RECORDS SUMMARY | 2025-01-25 22:38 | XMS_ITS | Encounter Summary ---
Author Organization [facility] Address [address] [place] [address] Phone Care Team Providers Care Travel Ot Name Role Phone Provider, King CHAND Primary Care Provider [phone] Encounter Details Date Type Department Care Team (Late st Contact Info) Description 09/24/2016 Conversion Encounter [facility] - [address] [address] Social History Tobacco Use Types Packs/Day Years [...] on filedocumented in this encounter Care Teams Travel Ot Relationship Specialty Start Date End Date Provider, MD King [address] [place] [id number] PCP - General Pediatrics 09/02/21 12/08/23 endo 05/04/18 documented as of this encounter
--- OUTSIDE RECORDS SUMMARY | 2025-01-25 22:38 | XMS_ITS | Encounter Summary ---
Author Organization [facility] Address [address] [facility] [address] [place] [address] Phone Care Team Providers Care Member Of Parliament Name Role Phone Delmer Jolley MD Primary Care Provider [phone] Encounter Details Date Type Department Care Team ([facility] st Contact Info) Description 06/28/2023 Telephone [facility] [address] [place] [address], [address], [address] [place] [address] Marcio Tamez MD, PhD [address] [place] [phone] [email or web address] Social History Tobacco Use Types Packs/Day Years [...] on filedocumented in this encounter Care Teams Member Of Parliament Relationship Specialty Start Date End Date Delmer Jolley MD [address] [place] [id number] PCP - General Internal Medicine 01/08/23 documented as of this encounter Additional Source Comments The information contained in this document represents components of the legal health record. It is not the complete legal health record.[facility]
--- OUTSIDE RECORDS SUMMARY | 2025-01-25 22:38 | XMS_ITS | Encounter Summary ---
Author Organization [facility] Address [address] [place] [address] Phone Care Team Providers Care Delivery Stock Clerk Name Role Phone Provider, King CHAND Primary Care Provider [phone] Encounter Details Date Type Department Care Team (Late st Contact Info) Description 06/27/2017 Conversion Encounter [facility] [address] [address] Deandre Palencia MD Social History Tobacco Use [...] on filedocumented in this encounter Care Teams Delivery Stock Clerk Relationship Specialty Start Date End Date Provider, MD King [address] [place] [id number] PCP - General Pediatrics 09/02/21 12/08/23 endo 05/04/18 documented as of this encounter
== END ==
LOC: HO.SL 20:30
PROVIDERS: Visit Provider Physician Assistant Medical
DX: G47.19 Other hypersomnia (principal)
CPT/HCPCS: 95810

== ENCOUNTER → 2025-01-25 21:37 | Outpatient (BNV) | payer MEDICARE, MEDICAID, SELFPAY | PROVIDERS: Visit Provider Psychiatry & Neurology Neurology | DX: G47.10 Hypersomnia, unspecified (principal) | CPT/HCPCS: 95810 ==